=== PATIENT | female | born 1950 | race Caucasian/White ===

== ENCOUNTER 2022-02-05 00:50 | Inpatient (IN) | payer MEDICARE, OTHER ==
[2022-02-05] MEDS ORDERED: Ondansetron PF 4 MG/2 ML Vial IVP PRN (02:42)
[2022-02-05] MEDS ORDERED: Ondansetron ODT 4 MG TAB PO PRN (02:42)
[2022-02-05] MEDS ORDERED: Acetaminophen 650 MG Suppository PR PRN (02:42)
[2022-02-05] MEDS ORDERED: Piperacillin/Tazobactam 3.375 GM in Sodium Chloride 0.9% 100 ML IVPB SCH ×2 (05:00→09:00)
[2022-02-05] MEDS ORDERED: Vancomycin Hemodialysis Sliding Scale FS SCH (05:00)
[2022-02-05 05:25] LABS: ALT (SGPT) 93 U/L (8-55); AST (SGOT) 108 U/L (5-34); Albumin 1.5 g/dL (3.4-4.8); Alkaline Phosphatase 165 U/L (40-110); Anion Gap 15 mmol/L (10-20); BUN (Urea Nitrogen) 11 mg/dL (9.8-20.1); Bilirubin, Total 1.9 mg/dL (0.2-1.2); Calc. Creatinine Clearance 14 mL/min (70-130); Calcium 7.6 mg/dL (7.8-10.44); Carbon Dioxide 18 mmol/L (23-31); Chloride 101 mmol/L (98-107); Globulin 3.6 g/dL (2.4-3.5); Glucose 74 mg/dL (80-115); Potassium 3.8 mmol/L (3.5-5.1); Protein, Total 5.1 g/dL (5.8-8.1); Sodium 130 mmol/L (136-145)
[2022-02-05 05:27] LABS: Lactic Acid 4.8 mmol/L (0.5-2.2)
[2022-02-05] MEDS ORDERED: VANCOMYCIN 1.25 GM/250 ML BAG 1.25 GM in Premix Bag 1 BAG IVPB SCH (06:00)
[2022-02-05] MEDS ORDERED: Sodium Chloride 0.9% 250 ML IV SCH (06:15)
[2022-02-05 08:23] LABS: #Lymphocytes 2.4 thou/uL (1.20-3.40); #Neutrophils 10.6 thou/uL (1.40-6.50); %Basophils 0.2 % (0.0-1.0); %Eosinophils 0.2 % (0.0-10.0); %Lymphocytes 17.2 % (21.0-51.0); %Monocytes 7.3 % (0.0-10.0); %Neutrophils 75.2 % (42.0-75.0); Hemoglobin 7.9 g/dL (12.0-16.0); Mean Corpuscular HGB CONC 32.3 g/dL (32.0-36.0); RBC Distribution Width 15.9 % (11.5-14.5); White Blood Cell (WBC) Count 14.2 thou/uL (4.8-10.8)
[2022-02-05] MEDS: Piperacillin/Tazobactam 3.375 GM in Sodium Chloride 0.9% 100 ML IVPB SCH ×2 (08:25→16:28)
[2022-02-05 08:36] LABS: Anion Gap 14 mmol/L (10-20); BUN (Urea Nitrogen) 12 mg/dL (9.8-20.1); Calc. Creatinine Clearance 13 mL/min (70-130); Calcium 7.6 mg/dL (7.8-10.44); Carbon Dioxide 22 mmol/L (23-31); Chloride 101 mmol/L (98-107); INR-International Normal Ratio 3.1; Potassium 3.6 mmol/L (3.5-5.1); Prothrombin Time 32.6 sec (12.0-14.7); Sodium 133 mmol/L (136-145)
[2022-02-05 08:38] LABS: MDiff Complete? YES; Macrocytosis SLIGHT = 6-15 cells (100X) (0-5/hpf); Mean Platelet Volume 8.6 fL (7.4-10.4); Ovalocytes SLIGHT = 2-5 cells (100X) (0-1/hpf); Platelet Count 91 thou/uL (130-400); Platelet Morphology Comment Appears Decreased; Polychromasia SLIGHT = 2-3 cells (100X) (0-2/hpf)
[2022-02-05 08:42] LABS: Critical Call Chemistry 2NO.PLT; Glucose 48 mg/dL (80-115)
[2022-02-05] MEDS ORDERED: Enoxaparin Sodium 30 MG/0.3 ML SYRINGE SC SCH (09:00)
[2022-02-05] MEDS ORDERED: Epoetin (ESRD) 20,000 UNITS/ML IVP ONE (09:01)
[2022-02-05] MEDS: Midodrine HCl 5 MG TAB PO SCH ×3 (10:07→20:04)
[2022-02-05] MEDS ORDERED: EPOETIN ALFA-EPBX (ESRD) 10,000 UNIT/ML VIAL SC SCH (10:30)
[2022-02-05] MEDS ORDERED: Epoetin (ESRD) 10,000 UNITS/ML VIAL SC SCH (10:45)
[2022-02-05] MEDS ORDERED: Albumin 25% 25 GM/100 ML BOT IVPB SCH (11:15)
[2022-02-05 11:25] LABS: HBSAB Concentration Less than 8.00 mIU/mL; HBSAg Index 0.25 S/CO (0-0.99); Hep B Surf AB Non-Reactive (NonReactive); Hep B Surf Ag Non-Reactive S/CO (NonReactive)
[2022-02-05 11:28] LABS: Glucose 67 mg/dL (80-115)
[2022-02-05] MEDS ORDERED: Sodium Chloride 0.9% 500 ML IV SCH (11:30)
[2022-02-05] MEDS ORDERED: EPOETIN ALFA-EPBX (ESRD) 10,000 UNIT/ML VIAL IVP SCH (12:00)
[2022-02-05] MEDS: Hydrocortisone Sod Succ/PF 100 mg/2 ml Vial IVP SCH ×3 (12:05→23:26)
[2022-02-05] MEDS ORDERED: Sodium Chloride 0.9% 1,000 ML IV SCH (19:30)
[2022-02-05] MEDS: Acetaminophen 325 MG TAB PO PRN (19:36)
[2022-02-06] MEDS: Piperacillin/Tazobactam 3.375 GM in Sodium Chloride 0.9% 100 ML IVPB SCH ×3 (04:23→18:39)
[2022-02-06 05:04] LABS: Anion Gap 14 mmol/L (10-20); BUN (Urea Nitrogen) 14 mg/dL (9.8-20.1); Calc. Creatinine Clearance 12 mL/min (70-130); Calcium 7.4 mg/dL (7.8-10.44); Carbon Dioxide 20 mmol/L (23-31); Chloride 100 mmol/L (98-107); Glucose 106 mg/dL (80-115); Iron 44 ug/dL (50-170); Potassium 3.5 mmol/L (3.5-5.1); Sodium 130 mmol/L (136-145)
[2022-02-06] MEDS: Hydrocortisone Sod Succ/PF 100 mg/2 ml Vial IVP SCH (05:55)
[2022-02-06] MEDS ORDERED: Heparin 10,000 UNITS/ 10 ML VIAL ONE ×2 (09:36→09:37)
[2022-02-06] MEDS: Midodrine HCl 5 MG TAB PO SCH ×3 (09:54→20:18)
[2022-02-06] MEDS: Folic Acid 1 MG TAB PO SCH (09:55)
[2022-02-06 11:02] LABS: Band 15 % (5-11); Hemoglobin 7.8 g/dL (12.0-16.0); Lymphocytes 7 % (21-51); MDiff Complete? YES; Mean Corpuscular HGB CONC 31.1 g/dL (32.0-36.0); Mean Corpuscular Hemoglobin 31.9 pg (27.0-31.0); Mean Platelet Volume 8.7 fL (7.4-10.4); Monocytes 3 % (0-10); Neutrophil 75 % (42-75); Ovalocytes SLIGHT = 2-5 cells (100X) (0-1/hpf); Platelet Count 98 thou/uL (130-400); Platelet Morphology Comment Appears Decreased; Polychromasia SLIGHT = 2-3 cells (100X) (0-2/hpf); RBC Distribution Width 16.1 % (11.5-14.5); Red Blood Cell (RBC) Count 2.45 mill/uL (4.20-5.40); White Blood Cell (WBC) Count 14.2 thou/uL (4.8-10.8)
[2022-02-06 11:27] LABS: Iron Binding Capacity, Total 30 mcg/dL (265-497)
[2022-02-06] MEDS: Acetaminophen 325 MG TAB PO PRN (22:39)
[2022-02-07] MEDS: Piperacillin/Tazobactam 3.375 GM in Sodium Chloride 0.9% 100 ML IVPB SCH ×2 (05:20→17:47)
[2022-02-07 07:25] LABS: Anion Gap 12 mmol/L (10-20); BUN (Urea Nitrogen) 11 mg/dL (9.8-20.1); Calc. Creatinine Clearance 16 mL/min (70-130); Calcium 7.8 mg/dL (7.8-10.44); Carbon Dioxide 23 mmol/L (23-31); Chloride 102 mmol/L (98-107); Glucose 67 mg/dL (80-115); Potassium 3.3 mmol/L (3.5-5.1); Sodium 134 mmol/L (136-145); Vancomycin, Random 13.6 ug/mL (See Comment)
[2022-02-07 08:00] LABS: #Lymphocytes 1.3 thou/uL (1.20-3.40); #Monocytes 0.7 thou/uL (0.11-0.59); #Neutrophils 9.9 thou/uL (1.40-6.50); %Basophils 0.2 % (0.0-1.0); %Lymphocytes 10.8 % (21.0-51.0); Hemoglobin 7.7 g/dL (12.0-16.0); Mean Corpuscular Hemoglobin 31.4 pg (27.0-31.0); Mean Platelet Volume 8.8 fL (7.4-10.4); Platelet Count 82 thou/uL (130-400); RBC Distribution Width 16.3 % (11.5-14.5); Red Blood Cell (RBC) Count 2.44 mill/uL (4.20-5.40); White Blood Cell (WBC) Count 11.9 thou/uL (4.8-10.8)
[2022-02-07 08:47] LABS: Hypochromia SLIGHT = 6-15 cells (100X) (0-5/hpf); MDiff Complete? YES; Macrocytosis SLIGHT = 6-15 cells (100X) (0-5/hpf); Ovalocytes SLIGHT = 2-5 cells (100X) (0-1/hpf); Platelet Morphology Comment Appears Decreased; Polychromasia SLIGHT = 2-3 cells (100X) (0-2/hpf)
[2022-02-07] MEDS ORDERED: Epoetin (ESRD) 20,000 UNITS/ML IVP SCH (08:53)
[2022-02-07] MEDS ORDERED: Heparin 10,000 UNITS/ 10 ML VIAL ONE (08:55)
[2022-02-07] MEDS: Midodrine HCl 5 MG TAB PO SCH ×3 (09:24→21:02)
[2022-02-07] MEDS: Folic Acid 1 MG TAB PO SCH (09:24)
[2022-02-07] MEDS ORDERED: EPOETIN ALFA-EPBX (ESRD) 10,000 UNIT/ML VIAL IVP SCH (12:00)
[2022-02-07] MEDS: Epoetin (ESRD) 10,000 UNITS/ML VIAL IVP SCH (15:54)
[2022-02-07] MEDS ORDERED: Vancomycin HCl 500 MG in Sodium Chloride 0.9% 100 ML IVPB SCH (17:00)
[2022-02-07] MEDS ORDERED: Phytonadione 5 MG TAB PO SCH (17:15)
[2022-02-07] MEDS: Acetaminophen 325 MG TAB PO PRN (17:55)
[2022-02-07] MEDS ORDERED: Dextrose 5% in Water 1,000 ML IV PRN (22:31)
[2022-02-07] MEDS: Dextrose 50% Abboject 50 ML SYRINGE SLOW IVP PRN (22:48)
[2022-02-08] MEDS: Acetaminophen 325 MG TAB PO PRN (00:05)
[2022-02-08] MEDS: Piperacillin/Tazobactam 3.375 GM in Sodium Chloride 0.9% 100 ML IVPB SCH ×2 (04:51→18:00)
[2022-02-08 06:15] LABS: #Eosinphils 0.1 thou/uL (0.0-0.7); #Lymphocytes 2.4 thou/uL (1.20-3.40); #Monocytes 1.1 thou/uL (0.11-0.59); #Neutrophils 6.1 thou/uL (1.40-6.50); %Basophils 0.1 % (0.0-1.0); %Eosinophils 0.6 % (0.0-10.0); %Lymphocytes 24.8 % (21.0-51.0); %Monocytes 10.9 % (0.0-10.0); %Neutrophils 63.6 % (42.0-75.0); Hemoglobin 7.7 g/dL (12.0-16.0); Mean Corpuscular HGB CONC 31.2 g/dL (32.0-36.0); Mean Corpuscular Hemoglobin 32.2 pg (27.0-31.0); Mean Platelet Volume 8.7 fL (7.4-10.4); Platelet Count 69 thou/uL (130-400); RBC Distribution Width 16.5 % (11.5-14.5); Red Blood Cell (RBC) Count 2.39 mill/uL (4.20-5.40); White Blood Cell (WBC) Count 9.6 thou/uL (4.8-10.8)
[2022-02-08 06:22] LABS: INR-International Normal Ratio 1.5; Prothrombin Time 18.1 sec (12.0-14.7)
[2022-02-08 06:40] LABS: Anion Gap 14 mmol/L (10-20); BUN (Urea Nitrogen) 10 mg/dL (9.8-20.1); Calc. Creatinine Clearance 18 mL/min (70-130); Calcium 7.6 mg/dL (7.8-10.44); Carbon Dioxide 20 mmol/L (23-31); Chloride 101 mmol/L (98-107); Glucose 118 mg/dL (80-115); Sodium 132 mmol/L (136-145)
[2022-02-08 07:07] LABS: Potassium 2.7 mmol/L (3.5-5.1)
[2022-02-08 07:31] LABS: Hep C IgG Ab Reflex HepC Qnt (NonReactive); Hep C Index 1.49 S/CO (0-0.79)
[2022-02-08] MEDS: Folic Acid 1 MG TAB PO SCH (08:14)
[2022-02-08] MEDS: Midodrine HCl 5 MG TAB PO SCH ×3 (08:14→19:33)
[2022-02-08] MEDS: Potassium Bicarbonate/Cit Ac 20 MEQ TAB PO SCH ×2 (10:07→12:23)
[2022-02-08 11:20] LABS: Campy jejuni + coli by PCR Negative (Negative); STEC Shiga Toxin 1+2 Negative (Negative); Salmonella spp. by PCR Negative (Negative); Shigella spp + EIEC by PCR Negative (Negative)
[2022-02-08] MEDS: Potassium Chloride 10 MEQ in Premix Bag 1 BAG IVPB SCH ×2 (13:01→14:26)
[2022-02-08] MEDS ORDERED: Potassium Chloride 10 MEQ in Premix Bag 1 BAG IVPB SCH ×2 (14:00→21:00)
[2022-02-08 15:08] VITALS: BMI 24.6
[2022-02-08 17:18] LABS: Potassium 3.2 mmol/L (3.5-5.1)
[2022-02-08] MEDS: Dextrose 50% Abboject 50 ML SYRINGE SLOW IVP PRN (19:24)
[2022-02-09] MEDS: Piperacillin/Tazobactam 3.375 GM in Sodium Chloride 0.9% 100 ML IVPB SCH ×2 (04:34→17:32)
[2022-02-09 07:46] LABS: #Eosinphils 0.1 thou/uL (0.0-0.7); #Lymphocytes 2.5 thou/uL (1.20-3.40); #Monocytes 1.1 thou/uL (0.11-0.59); #Neutrophils 5.3 thou/uL (1.40-6.50); %Basophils 0.1 % (0.0-1.0); %Eosinophils 1.3 % (0.0-10.0); %Lymphocytes 27.2 % (21.0-51.0); %Monocytes 12.6 % (0.0-10.0); %Neutrophils 58.8 % (42.0-75.0); Hemoglobin 8.2 g/dL (12.0-16.0); Mean Corpuscular HGB CONC 30.6 g/dL (32.0-36.0); Mean Corpuscular Hemoglobin 31.6 pg (27.0-31.0); Mean Platelet Volume 8.7 fL (7.4-10.4); Platelet Count 81 thou/uL (130-400); RBC Distribution Width 16.7 % (11.5-14.5); Red Blood Cell (RBC) Count 2.61 mill/uL (4.20-5.40); White Blood Cell (WBC) Count 9.1 thou/uL (4.8-10.8)
[2022-02-09 07:55] LABS: Vancomycin, Random 18.2 ug/mL (See Comment)
[2022-02-09] MEDS: Midodrine HCl 5 MG TAB PO SCH ×3 (09:00→20:16)
[2022-02-09] MEDS: Folic Acid 1 MG TAB PO SCH (09:00)
[2022-02-09] MEDS ORDERED: Heparin 10,000 UNITS/ 10 ML VIAL ONE (09:02)
[2022-02-09] MEDS: Acetaminophen 325 MG TAB PO PRN ×2 (12:05→22:01)
[2022-02-09] MEDS: Epoetin (ESRD) 10,000 UNITS/ML VIAL IVP SCH (15:41)
[2022-02-09] MEDS ORDERED: Vancomycin HCl 250 MG in Sodium Chloride 0.9% 100 ML IVPB SCH (17:00)
[2022-02-10] MEDS: Piperacillin/Tazobactam 3.375 GM in Sodium Chloride 0.9% 100 ML IVPB SCH ×2 (05:11→15:46)
[2022-02-10] MEDS: Acetaminophen 325 MG TAB PO PRN ×3 (05:27→21:08)
[2022-02-10] MEDS: Folic Acid 1 MG TAB PO SCH (08:16)
[2022-02-10] MEDS: Midodrine HCl 5 MG TAB PO SCH ×3 (08:16→20:18)
[2022-02-10 12:46] LABS: Anion Gap 14 mmol/L (10-20); BUN (Urea Nitrogen) 8 mg/dL (9.8-20.1); Calc. Creatinine Clearance 18 mL/min (70-130); Calcium 7.4 mg/dL (7.8-10.44); Carbon Dioxide 22 mmol/L (23-31); Chloride 100 mmol/L (98-107); Glucose 149 mg/dL (80-115); Potassium 3.3 mmol/L (3.5-5.1); Sodium 133 mmol/L (136-145)
[2022-02-11] MEDS: Acetaminophen 325 MG TAB PO PRN ×3 (03:08→20:56)
[2022-02-11] MEDS: Piperacillin/Tazobactam 3.375 GM in Sodium Chloride 0.9% 100 ML IVPB SCH ×2 (05:24→15:37)
[2022-02-11 07:33] LABS: Vancomycin, Random 16.6 ug/mL (See Comment)
[2022-02-11] MEDS: Folic Acid 1 MG TAB PO SCH (08:10)
[2022-02-11] MEDS: Midodrine HCl 5 MG TAB PO SCH ×3 (08:10→20:51)
[2022-02-11] MEDS: Epoetin (ESRD) 10,000 UNITS/ML VIAL IVP SCH (15:38)
[2022-02-11] MEDS ORDERED: Vancomycin HCl 250 MG in Sodium Chloride 0.9% 100 ML IVPB SCH (17:00)
[2022-02-11 18:37] LABS: Hep C PCR-Quant HCV Not Detected IU/mL (.)
[2022-02-12] MEDS: Acetaminophen 325 MG TAB PO PRN ×3 (03:01→13:02)
[2022-02-12] MEDS: Piperacillin/Tazobactam 3.375 GM in Sodium Chloride 0.9% 100 ML IVPB SCH ×2 (05:02→23:02)
[2022-02-12 07:44] LABS: #Eosinphils 0.1 thou/uL (0.0-0.7); #Lymphocytes 2.1 thou/uL (1.20-3.40); #Monocytes 1.3 thou/uL (0.11-0.59); #Neutrophils 6.9 thou/uL (1.40-6.50); %Basophils 0.2 % (0.0-1.0); %Eosinophils 0.8 % (0.0-10.0); %Lymphocytes 20.4 % (21.0-51.0); %Neutrophils 66.5 % (42.0-75.0); Hemoglobin 8.6 g/dL (12.0-16.0); Mean Corpuscular HGB CONC 31.8 g/dL (32.0-36.0); Mean Corpuscular Hemoglobin 32.3 pg (27.0-31.0); Mean Platelet Volume 8.6 fL (7.4-10.4); Platelet Count 85 thou/uL (130-400); RBC Distribution Width 16.5 % (11.5-14.5); Red Blood Cell (RBC) Count 2.65 mill/uL (4.20-5.40); White Blood Cell (WBC) Count 10.4 thou/uL (4.8-10.8)
[2022-02-12 07:57] LABS: Vancomycin, Random 14.9 ug/mL (See Comment)
[2022-02-12 07:59] LABS: Anion Gap 17 mmol/L (10-20); BUN (Urea Nitrogen) 13 mg/dL (9.8-20.1); Calc. Creatinine Clearance 13 mL/min (70-130); Calcium 7.5 mg/dL (7.8-10.44); Carbon Dioxide 17 mmol/L (23-31); Chloride 98 mmol/L (98-107); Glucose 106 mg/dL (80-115); Sodium 129 mmol/L (136-145)
[2022-02-12] MEDS: Folic Acid 1 MG TAB PO SCH (08:25)
[2022-02-12] MEDS: Midodrine HCl 5 MG TAB PO SCH ×3 (08:26→22:59)
[2022-02-12] MEDS ORDERED: Heparin 10,000 UNITS/ 10 ML VIAL ONE (08:52)
[2022-02-12] MEDS ORDERED: Loperamide HCl 2 MG CAP PO PRN (10:58)
[2022-02-12] MEDS ORDERED: traMADol HCl 50 MG TAB PO PRN (14:21)
[2022-02-12] MEDS: traMADol HCl 50 MG TAB PO PRN (14:50)
[2022-02-12] MEDS ORDERED: Vancomycin HCl 500 MG in Sodium Chloride 0.9% 100 ML IVPB SCH (17:00)
[2022-02-13] MEDS: traMADol HCl 50 MG TAB PO PRN ×2 (02:51→14:59)
[2022-02-13] MEDS: Piperacillin/Tazobactam 3.375 GM in Sodium Chloride 0.9% 100 ML IVPB SCH ×2 (06:09→16:59)
[2022-02-13 06:52] LABS: #Eosinphils 0.1 thou/uL (0.0-0.7); #Monocytes 1.1 thou/uL (0.11-0.59); %Basophils 0.4 % (0.0-1.0); %Eosinophils 0.5 % (0.0-10.0); %Lymphocytes 19.8 % (21.0-51.0); %Monocytes 10.9 % (0.0-10.0); %Neutrophils 68.4 % (42.0-75.0); Anisocytosis SLIGHT = 6-15 cells (100X) (0-5/hpf); Hemoglobin 8.7 g/dL (12.0-16.0); MDiff Complete? YES; Macrocytosis SLIGHT = 6-15 cells (100X) (0-5/hpf); Mean Corpuscular HGB CONC 32.4 g/dL (32.0-36.0); Mean Corpuscular Hemoglobin 33.2 pg (27.0-31.0); Mean Platelet Volume 9.6 fL (7.4-10.4); Platelet Count 58 thou/uL (130-400); Platelet Morphology Comment Appears Decreased; RBC Distribution Width 18.8 % (11.5-14.5); Red Blood Cell (RBC) Count 2.62 mill/uL (4.20-5.40); White Blood Cell (WBC) Count 10.3 thou/uL (4.8-10.8)
[2022-02-13 07:00] LABS: Anion Gap 14 mmol/L (10-20); BUN (Urea Nitrogen) 13 mg/dL (9.8-20.1); Calc. Creatinine Clearance 13 mL/min (70-130); Calcium 7.3 mg/dL (7.8-10.44); Carbon Dioxide 19 mmol/L (23-31); Chloride 98 mmol/L (98-107); Glucose 85 mg/dL (80-115); Potassium 3.3 mmol/L (3.5-5.1); Sodium 128 mmol/L (136-145)
[2022-02-13] MEDS: Midodrine HCl 5 MG TAB PO SCH ×3 (08:36→21:50)
[2022-02-13] MEDS: Folic Acid 1 MG TAB PO SCH (08:36)
[2022-02-13] MEDS ORDERED: Potassium Chloride 20 MEQ TAB PO SCH (10:00)
[2022-02-13] MEDS ORDERED: Potassium Chloride 10 MEQ in Premix Bag 1 BAG IVPB SCH (10:30)
[2022-02-14] MEDS: Piperacillin/Tazobactam 3.375 GM in Sodium Chloride 0.9% 100 ML IVPB SCH ×2 (05:55→16:50)
[2022-02-14 07:22] LABS: Vancomycin, Random 19.6 ug/mL (See Comment)
[2022-02-14 07:41] LABS: Anion Gap 18 mmol/L (10-20); BUN (Urea Nitrogen) 17 mg/dL (9.8-20.1); Calc. Creatinine Clearance 11 mL/min (70-130); Calcium 7.3 mg/dL (7.8-10.44); Carbon Dioxide 15 mmol/L (23-31); Chloride 98 mmol/L (98-107); Glucose 111 mg/dL (80-115); Potassium 3.3 mmol/L (3.5-5.1); Sodium 128 mmol/L (136-145)
[2022-02-14] MEDS ORDERED: Heparin 10,000 UNITS/ 10 ML VIAL ONE (08:45)
[2022-02-14] MEDS: Midodrine HCl 5 MG TAB PO SCH ×3 (08:55→21:16)
[2022-02-14] MEDS: Folic Acid 1 MG TAB PO SCH (08:56)
[2022-02-14] MEDS ORDERED: Albumin 25% 25 GM/100 ML BOT IVPB SCH (13:15)
[2022-02-14] MEDS: traMADol HCl 50 MG TAB PO PRN (15:32)
[2022-02-14] MEDS: Epoetin (ESRD) 10,000 UNITS/ML VIAL IVP SCH (15:33)
[2022-02-14] MEDS ORDERED: Vancomycin HCl 250 MG in Sodium Chloride 0.9% 100 ML IVPB SCH (17:00)
[2022-02-14] MEDS ORDERED: Labetalol HCl 100 MG/20 ML VIAL ONE (17:25)
[2022-02-15] MEDS: Piperacillin/Tazobactam 3.375 GM in Sodium Chloride 0.9% 100 ML IVPB SCH (05:58)
[2022-02-15 06:37] LABS: Anion Gap 14 mmol/L (10-20); BUN (Urea Nitrogen) 18 mg/dL (9.8-20.1); Calc. Creatinine Clearance 10 mL/min (70-130); Calcium 7.6 mg/dL (7.8-10.44); Carbon Dioxide 20 mmol/L (23-31); Chloride 97 mmol/L (98-107); Glucose 70 mg/dL (80-115); Sodium 128 mmol/L (136-145)
[2022-02-15] MEDS: Folic Acid 1 MG TAB PO SCH (09:12)
[2022-02-15] MEDS: Midodrine HCl 5 MG TAB PO SCH ×3 (09:12→21:54)
[2022-02-15] MEDS ORDERED: Potassium Chloride 20 MEQ TAB PO SCH (10:00)
[2022-02-15] MEDS: traMADol HCl 50 MG TAB PO PRN (14:37)
[2022-02-16] MEDS: traMADol HCl 50 MG TAB PO PRN ×2 (03:40→15:50)
[2022-02-16 07:29] LABS: Vancomycin, Random 20.6 ug/mL (See Comment)
[2022-02-16 07:30] LABS: Anion Gap 20 mmol/L (10-20); BUN (Urea Nitrogen) 21 mg/dL (9.8-20.1); Calc. Creatinine Clearance 9 mL/min (70-130); Calcium 7.8 mg/dL (7.8-10.44); Carbon Dioxide 16 mmol/L (23-31); Chloride 99 mmol/L (98-107); Glucose 85 mg/dL (80-115); Potassium 3.8 mmol/L (3.5-5.1); Sodium 131 mmol/L (136-145)
[2022-02-16] MEDS: Midodrine HCl 5 MG TAB PO SCH ×3 (07:54→20:49)
[2022-02-16] MEDS: Folic Acid 1 MG TAB PO SCH (07:54)
[2022-02-16] MEDS ORDERED: Albumin 25% 25 GM/100 ML BOT IVPB SCH (13:15)
[2022-02-16] MEDS: Epoetin (ESRD) 10,000 UNITS/ML VIAL IVP SCH (15:52)
[2022-02-16] MEDS: Acetaminophen 325 MG TAB PO PRN (20:49)
[2022-02-17] MEDS: traMADol HCl 50 MG TAB PO PRN ×2 (03:30→14:49)
[2022-02-17] MEDS: Midodrine HCl 5 MG TAB PO SCH ×2 (08:13→14:49)
[2022-02-17] MEDS: Folic Acid 1 MG TAB PO SCH (08:14)
[2022-02-17 08:18] VITALS: BP 95/61; TEMP 98.1
== END 2022-02-17 15:24 | disposition hospice, home (50) | DRG 871 ==
LOC: ERS 00:50 → 2NO 01:45 → OBSVTOIN 02-06 14:29 → T4-A 02-06 21:27
PROVIDERS: ADMIT Internal Medicine; ATTEND Internal Medicine
PROC: 3E03329 Introduction of Other Anti-infective into Peripheral Vein, Percutaneous Approach (ICD-10-PCS; principal; 2022-02-06)
PROC: 5A1D70Z Performance of Urinary Filtration, Intermittent, Less than 6 Hours Per Day (ICD-10-PCS; 2022-02-06)
PROC: 05PYX3Z Removal of Infusion Device from Upper Vein, External Approach (ICD-10-PCS; 2022-02-17)
DX: A41.4 Sepsis due to anaerobes (principal); Z66 Do not resuscitate; Z20.822 Contact with and (suspected) exposure to COVID-19; Z51.5 Encounter for palliative care; N18.6 End stage renal disease; K65.2 Spontaneous bacterial peritonitis; E43 Unspecified severe protein-calorie malnutrition; R65.21 Severe sepsis with septic shock; R18.8 Other ascites; E87.1 Hypo-osmolality and hyponatremia; D68.4 Acquired coagulation factor deficiency; I12.0 Hypertensive chronic kidney disease with stage 5 chronic kidney disease or end stage renal disease; D63.1 Anemia in chronic kidney disease; K52.9 Noninfective gastroenteritis and colitis, unspecified; D69.59 Other secondary thrombocytopenia; K74.60 Unspecified cirrhosis of liver; G70.00 Myasthenia gravis without (acute) exacerbation; E83.51 Hypocalcemia; R74.8 Abnormal levels of other serum enzymes; E16.2 Hypoglycemia, unspecified; E88.09 Other disorders of plasma-protein metabolism, not elsewhere classified; K72.10 Chronic hepatic failure without coma; F32.A Depression, unspecified; K75.81 Nonalcoholic steatohepatitis (NASH); K64.8 Other hemorrhoids; E87.5 Hyperkalemia; E83.52 Hypercalcemia; E87.6 Hypokalemia; Z99.2 Dependence on renal dialysis; Z86.73 Personal history of transient ischemic attack (TIA), and cerebral infarction without residual deficits; Z90.89 Acquired absence of other organs; Z68.24 Body mass index [BMI] 24.0-24.9, adult
CPT/HCPCS: 36415; 36416; 49083; 71045; 80048; 80053; 80202; 82088; 82105; 82140; 82274; 82607; 82746; 83540; 83550; 83605; 84443; 85025; 85610; 86706; 86803; 87340; 87505; 87522; 90935; 96374; 96375; 96376; 99285; G0257; G0378; J1610; J1644; J1720; J2543; J3370; J3480; J3490; J7030; J7050; J7999; P9047; Q4081; U0003; U0005